=== PATIENT | male | born 1980 | race Hispanic/Latino ===

== ENCOUNTER 2017-04-26 23:42 | Emergency (ER) | payer MEDICAID, OTHER ==
[2017-04-26 23:43] VITALS: BMI 25.8
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
[2017-04-27 00:01] VITALS: BP 153/87; PULSE 107; RESP 20; TEMP 97.4; O2SAT 96
[2017-04-27] MEDS ORDERED: Lidocaine 1% Inj (20ml) INFIL STA (00:03)
[2017-04-27] MEDS ORDERED: Lidocaine 1% Inj (20ml) ONE (00:07)
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
--- NOTE | 2017-04-27 10:18 | RAD ---
Pelvis and right hip three views History: Hip pain. Comparison: None available. Findings: No evidence of acute displaced fracture or dislocation. Nonspecific linear sclerosis seen at the right femoral head neck junction. Mild narrowing of the superior aspect of the hip joint spaces with subchondral sclerosis. Impression: No evidence of acute displaced fracture or dislocation. Nonspecific linear sclerosis seen at the right femoral head neck junction. Mild narrowing of the superior aspect of the hip joint spaces with subchondral sclerosis. If pain persists, consider MRI.
== END 2017-04-27 01:41 | disposition home or self-care (01) ==
LOC: C.ER 23:42
DX: S01.411A Laceration without foreign body of right cheek and temporomandibular area, initial encounter (principal); Y04.2XXA Assault by strike against or bumped into by another person, initial encounter; Y92.488 Other paved roadways as the place of occurrence of the external cause

== ENCOUNTER 2017-04-27 02:34 | Emergency (ER) | payer OTHER ==
[2017-04-27 02:34] VITALS: BMI 25.8
[2017-04-27 02:46] VITALS: RESP 20
--- NOTE | 2017-04-27 02:46 | C.PDOC ---
Time Seen by Provider: 04/27/17 02:46 Chief Complaint (Nursing): Abnormal Skin Integrity Past Medical History - Medical History PMH: Anxiety, Arthritis, Asthma, Depression, Hepatitis (C), HTN, Hypercholesterolemia, Post Traumatic Stress Disorder Denies: Alzheimer's Disease, Anemia, Atrial Fibrillation, Bipolar Disorder, Bronchitis, Cardia Arrhythmia, CHF, COPD, Crohn's Disease, Dementia, Diabetes, Diverticulitis, Emphysema, Fractures, Gastritis, Gall Bladder Disease, HIV, Hyperthyroidism, Hypothyroidism, Kidney Stones, Migraine, Mitral Valve Prolapse , Multiple Sclerosis, Osteoporosis, Pancreatitis, Parkinson's Disease, Peripheral Edema, Personality Disorder, Pneumonia, Pulmonary Embolism, Chronic Kidney Disease, Rheumatoid Arthritis, Schizophrenia, Seizures, Sickle Cell Disease, Sexually Transmitted Disease, Sleep Apnea, TIA Surgical History: Denies: Appendectomy, CABG, Carotid Endarterectomy, Cholecystectomy, Coronary Stent, Pacemaker, Tonsillectomy - [facility] Procedures DETOXIFICATION SERVICES FOR SUBSTANCE ABUSE TREATMENT (04/22/16) GROUP PSYCHOTHERAPY (04/22/16) INDIV PSYCHOTHERAPY FOR SUBSTANCE ABUSE TREATMENT, SUPPORT (04/22/16) MEDS MGMT FOR SUBSTANCE ABUSE TREATMENT, NICOTINE REPLACE (04/22/16) MEDS MGMT FOR SUBSTANCE ABUSE TREATMENT, PSYCH MED (04/22/16) PSYCHIAT DRUG THERAP NEC (11/25/13) Family History: States: Unknown Family Hx - Social History Hx Tobacco Use: Yes Hx Alcohol Use: Yes Hx Substance Use: Yes - Immunization History Hx Tetanus Toxoid Vaccination: No Hx Influenza Vaccination: No Hx Pneumococcal Vaccination: No Disposition - Disposition Referrals: Non [facility] Provider, [Primary Care Provider] -
[2017-04-27 03:15] VITALS: BP 124/76; PULSE 78; TEMP 98.5; O2SAT 98
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
== END 2017-04-27 03:14 | disposition home or self-care (01) ==
LOC: C.ER 02:34 → SUPCPDRO 02:34 → C.ER 03:14
DX: S01.81XD Laceration without foreign body of other part of head, subsequent encounter (principal); W18.30XD Fall on same level, unspecified, subsequent encounter